=== PATIENT | female | born 2000 | race Two or more races ===

== ENCOUNTER 2025-10-09 17:35 | Emergency (ER) | payer OTHER ==
[~2025-10-09] VITALS: Ht 152.4 cm; Wt 125.2 kg
[2025-10-09 17:38] VITALS: BP 122/83; PULSE 77; RESP 18; TEMP 98; O2SAT 97
--- NOTE | 2025-10-09 18:51 | DVH ---
EXAM: XY L ANKLE 3 VIEW CLINICAL INDICATION: injury pain and swelling TECHNIQUE: XY L ANKLE 3 VIEW Comparison: None FINDINGS/IMPRESSION: There is no evidence of acute fracture or dislocation. The visualized joint space is well maintained. The alignment is anatomical. There is no radiopaque foreign body.
--- NOTE | 2025-10-09 19:06 | ED.PDOC ---
Back pain HPI HPI Comments 25-YEAR-OLD FEMALE HERE FOR SLIP AND FALL TODAY AT WORK. SLIPPED ON WATER. LEFT ANKLE EDEMA NOTED. ABLE TO BEAR WEIGHT AND HAS PRICKLY FEELING. [place] REPORTS RIGHT KNEE AND ELBOW PAIN. 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 10/09/25 Information Source: Patient Mode of Arrival: Ambulatory All Other Systems: Reviewed and Negative (SEE HPI) Physical Exam General Appearance: No Apparent Distress, Normal HEENT: Normal ENT Inspection, Pharynx Normal, TMs Normal Neck: Full Range of Motion, Non-Tender, Normal, Normal Inspection Respiratory: Chest Non-Tender, Lungs Clear, No Accessory Muscle Use, No Respiratory Distress, Normal Breath Sounds Cardiovascular: No Edema, No JVD, No Murmur, No Gallop, Normal Peripheral Pulses, Regular Rate/Rhythm Breast Exam: Deferred Gastrointestinal: No Organomegaly, Non Tender, No Pulsatile Mass, Normal Bowel Sounds, Soft Genitalia: Deferred Pelvic: Deferred Rectal: Deferred Extremities: No calf tenderness, Normal capillary refill, Normal inspection, Normal range of motion, Non-tender, No pedal edema Musculoskeletal : Location: Left Extremity Location: Ankle (EDEMA LATERAL ANKLE WITH MODERATE TENDERNESS ON PALPATION NO NOTED CREPITUS POSITIVE PEDAL PULSE STRENGTH SENSORY MOTION INTACT), Elbow (TENDERNESS ON PALPATION OVER RIGHT ELBOW NO NOTED ECCHYMOSIS ABRASIONS OR LACERATIONS NO NOTED EDEMA STRENGTH SENSORY MOTION INTACT), Knee (TENDERNESS OVER RIGHT KNEE PATELLA NO NOTED ABRASIONS LACERATIONS EDEMA OR ECCHYMOSIS NEGATIVE ERIS AND DRAWER EXAM STRENGTH SENSORY MOTION INTACT POSITIVE PEDAL PULSE) Apperance: Normal Neurologic: Alert, 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 Was a procedure done?: No Back Pain Differential Dx Differential Diagnosis: Fracture, Musculoskeletal Pain, Strain X-Ray, Labs, Meds, VS Vital Signs Date Time Temp Pulse Resp B/P (MAP) Pulse Ox O2 Delivery O2 Flow Rate FiO2 10/09/25 17:38 98.0 77 18 122/83 97 98.0 X-Ray, Labs, Meds, VS Comment SCRIPT TRIAL OF NSAID ADVISED TAKE MEDICATION PRESCRIBED SIDE EFFECTS DISCUSSED. ADVISED ON RICE FOR THE NEXT THREE DAYS FOLLOW UP WITH OCCUPATIONAL HEALTH IF SYMPTOMS PERSIST ER RETURN PRECAUTIONS GIVEN PATIENT INDICATES UNDERSTANDING AGREES WITH DISCHARGE PLAN OF CARE. Time of 1ST Reevaluation: 18:02 Reevaluation 1ST: Unchanged Time of 2ND Reevaluation: 19:10 Reevaluation 2ND: Improved Patient Education/Counseling: Diagnosis, Treatment, Need For Follow Up Family Education/Counseling: No Family Present SEPSIS Sepsis Screen Date sepsis recognized/suspect: Oct 09, 2025 Time Sepsis recognized/suspect: 1739 Recent Procedure: No On Antibiotic Therapy: No Respiratory Rate >20: No Heart Rate >90: No Temp<36 C (96.8 F) or >38.3 C: No SBP <90 or MAP <65 mmHG: No New Acute Mental Status Change: No Is the patient on CPAP, BIPAP,: No Physician Orders L Ankle 3 View (10/09/25 18:14) Vital Signs Date Time Temp Pulse Resp B/P (MAP) Pulse Ox O2 Delivery O2 Flow Rate FiO2 10/09/25 17:38 98.0 77 18 122/83 97 98.0 Departure 1 Departure Time of Disposition: 19:09 Impression: Primary Impression: Sprain of left ankle Qualified Codes: S93.402A - Sprain of unspecified ligament of left ankle, initial encounter Additional Impressions: Contusion of right knee Qualified Codes: S80.01XA - Contusion of right knee, initial encounter Contusion of right elbow Qualified Codes: S50.01XA - Contusion of right elbow, initial encounter Disposition: 01 HOME / SELF CARE / HOMELESS Condition: Stable e-Prescriptions Ibuprofen (Ibuprofen) 800 Mg Tab 800 MG PO Q8HP PRN for 5 Days, #15 TAB Prov: SHELLEY PUCKETT 10/09/25 Discharged With: Self Critical Care Note Critical Care Time?: No Stability Stability form required: SHELLEY Henderson Oct 09, 2025 19:06
[2025-10-09] MEDS ORDERED: IBUP-1456 PO (19:11)
== END 2025-10-09 19:39 | disposition home or self-care (01) ==
LOC: ER 17:35
DX: S93.402A Sprain of unspecified ligament of left ankle, initial encounter (principal); S80.01XA Contusion of right knee, initial encounter; S50.01XA Contusion of right elbow, initial encounter; Z79.899 Other long term (current) drug therapy; W01.0XXA Fall on same level from slipping, tripping and stumbling without subsequent striking against object, initial encounter; Y93.89 Activity, other specified; Y92.89 Other specified places as the place of occurrence of the external cause; Y99.0 Civilian activity done for income or pay
CPT/HCPCS: 73610